=== PATIENT | female | born 1980 | race Caucasian/White ===

== ENCOUNTER 2024-02-24 17:16 | Emergency (ER) | payer SELFPAY ==
[2024-02-24] MEDS ORDERED: Ibuprofen 200 MG TAB ONE (18:04)
[2024-02-24] MEDS ORDERED: Boostrix 0.5 ML (Tdap) VIAL (>/=7 yrs of age) ONE (18:05)
== END 2024-02-24 18:23 | disposition home or self-care (01) ==
LOC: CSHERS 17:16
DX: S50.811A Abrasion of right forearm, initial encounter (principal); W22.8XXA Striking against or struck by other objects, initial encounter; Y93.89 Activity, other specified
CPT/HCPCS: 90471; 90715